=== PATIENT | female | born 1990 | race Caucasian/White ===

== ENCOUNTER 2017-10-02 14:29 | Emergency (ER) | payer OTHER ==
[~2017-10-02] VITALS: Ht 162.6 cm; Wt 68.0 kg
--- NOTE | 2017-10-02 16:27 | Diagnostic Imaging Report ---
PROCEDURE:X-RAY RIGHT KNEE, THREE OR MORE VIEWS COMPARISON:None. INDICATIONS:RIGHT KNEE PAIN, HX OF KNEE SX FINDINGS: The bones are well-mineralized. There are no fractures, subluxations, lytic or blastic lesions. There is a small joint effusion. CONCLUSION: No acute fracture or dislocation of the right knee. Dictated by: Jose Alejandro Oropeza M.D. on 10/02/2017 at 16:31 Electronically approved by: Jose Alejandro Oropeza M.D. on 10/02/2017 at 16:31
== END 2017-10-02 20:20 | disposition home or self-care (01) ==
LOC: ER 14:29
DX: M25.461 Effusion, right knee (principal); S83.421A Sprain of lateral collateral ligament of right knee, initial encounter; S83.411A Sprain of medial collateral ligament of right knee, initial encounter; Y93.64 Activity, baseball; Y92.320 Baseball field as the place of occurrence of the external cause
CPT/HCPCS: 99283